=== PATIENT | male | born 1975 | race Caucasian/White ===

== ENCOUNTER 2016-08-12 09:55 | Emergency (ER) | payer OTHER ==
[2016-08-12 11:18] VITALS: BP 108/69
--- NOTE | 2016-08-12 12:04 | RAD ---
HISTORY: Swelling and pain, third DIP joint of the right hand COMPARISONS: None VIEWS: 3, Frontal, lateral, and oblique views of the third digit of the right hand FINDINGS: BONE DENSITY: Normal. BONES: There is no displaced fracture. JOINTS: There is no arthropathy. ALIGNMENT: There is no dislocation. SOFT TISSUES: Unremarkable. OTHER FINDINGS: None. IMPRESSION: NO ACUTE OSSEOUS INJURY. IF SYMPTOMS PERSIST, RECOMMEND REPEAT IMAGING.
--- NOTE | 2016-08-12 12:32 | UC ---
Hand/Wrist HPI - HPI Summary HPI Summary: SIX MONTHS AGO MAY HAVE DISLOCATED (AND SELF REDUCED) RIGHT MIDDLE AND RING FINGERS (DISTAL KNUCKLES OF BOTH) . SINCE THAT TIME HAS HAD PAIN WITH FLEXION OF BOTH FINGERS WELL SWELLING. ALSO HAS HAD CHRONIC RIGHT ELBOW TENDINITIS. - History Of Current Complaint Chief Complaint: UCUpperExtremity Stated Complaint: SWOLLEN FINGER Time Seen by Provider: 08/12/16 11:08 Hx Obtained From: Patient Onset/Duration: Gradual Onset, Lasting Weeks, Worse Since - LAST TWO WEEKS Severity Initially: Moderate Severity Currently: Mild Character Of Pain: Dull, Aching Aggravating Factor(s): Flexion, Extension Alleviating: Nothing Associated Signs And Symptoms: Positive: Swelling. Negative: Redness, Numbness/ Tingling Related History: Dominant Hand Right - Allergies/Home Medications Allergies/Adverse Reactions: Allergies Allergy/AdvReac Type Severity Reaction Status Date / Time No Known Allergies Allergy Verified 05/16/15 19:09 Home Medications: Home Medications NK [No Home Medications Reported] 08/12/16 [History Confirmed 08/12/16] PMH/Surg Hx/FS Hx/Imm Hx Previously Healthy: Yes Endocrine History Of: Denies: Diabetes, Thyroid Disease Cardiovascular History Of: Denies: Cardiac Disorders, Hypertension Respiratory History Of: Denies: COPD, Asthma GI/ History Of: Denies: Ulcer - Surgical History Surgical History: Yes Surgery Procedure, Year, and Place: pin L hand - Family History Known Family History: Positive: Diabetes - FATHER Negative: Respiratory Disease, Blood Disorder - Social History Occupation: Employed Full-time Lives: With Family Alcohol Use: None Substance Use Type: None Smoking Status (MU): Never Smoked Tobacco Review of Systems Constitutional: Negative Skin: Negative Eyes: Negative ENT: Negative Respiratory: Negative Cardiovascular: Negative Gastrointestinal: Negative Genitourinary: Negative Musculoskeletal: Arthralgia - RIGHT 3RD 4TH FINGER, Edema - RIGHT 4TH 3RD FINGER , Myalgia Neurological: Negative Psychological: Negative All Other Systems Reviewed And Are Negative: Yes Physical Exam Triage Information Reviewed: Yes Appearance: Well-Appearing, No Pain Distress, Well-Nourished Vital Signs: Initial Vital Signs Temp 97.6 F 08/12/16 11:12 Pulse 46 08/12/16 11:12 Resp 18 08/12/16 11:12 BP 108/69 08/12/16 11:12 Pulse Ox 98 08/12/16 11:12 Vital Signs Reviewed: Yes Eye Exam: Normal Eyes: Positive: Conjunctiva Clear ENT Exam: Normal ENT: Positive: Normal ENT inspection, Hearing grossly normal, TMs normal Dental Exam: Normal Neck exam: Normal Respiratory Exam: Normal Respiratory: Positive: Chest non-tender, Lungs clear, Normal breath sounds, No respiratory distress, No accessory muscle use Cardiovascular Exam: Normal Cardiovascular: Positive: RRR, No Murmur, Pulses Normal Abdominal Exam: Normal Abdomen Description: Positive: Nontender, No Organomegaly Musculoskeletal Exam: Normal Musculoskeletal: Positive: Strength Intact, ROM Intact Neurological Exam: Normal Psychological Exam: Normal Skin Exam: Normal Hand/Wrist Course/Dx - Differential Dx/Diagnosis Differential Diagnosis/HQI/PQRI: Sprain, Strain Provider Diagnoses: RIGHT THIRD AND FOURTH FINGER SPRAIN Discharge - Discharge Plan Condition: Stable Disposition: HOME Patient Education Materials: Finger Dislocation (ED), Finger Sprain (ED), Tendinitis (ED) Referrals: [facility] [place], [place] [facility] [Outside] Iván Schrader MD [Medical Doctor] - Bernadette Burrell MD [Medical Doctor] - Abiel Lehman MD [Primary Care Provider] -
== END 2016-08-12 12:31 | disposition home or self-care (01) ==
LOC: UCEAST 09:55
DX: S63.612A Unspecified sprain of right middle finger, initial encounter (principal); X58.XXXA Exposure to other specified factors, initial encounter
CPT/HCPCS: 73140; 99213; G0463

== ENCOUNTER 2018-10-19 14:26 | Emergency (ER) | payer OTHER ==
--- OUTSIDE RECORDS SUMMARY | 2018-10-19 15:55 | XMS REPORT | Continuity of Care Document ---
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 Ta Ordoñez MD Primary Care Physician Unavailable Payers Date Identification Numbers Payment Provider Subscriber Policy Number: [id number] Swetha Jocelyn Gallardo PayID: [id number] [address] [place] [address] Expires: 2018 Policy Number: [id number] [facility] Juliocesar Gallardo Group Number: [id number] [address] PayID: [id number] [place] [address] Advance Directives Description No Information Available Problems Description No Information Family History Description No Information Available Social History Type Date Description Comments Sex Unknown Allergies, Adverse Reactions, Alerts Description No Information Medications Description No Information Immunizations Description No Information Available Vital Signs Description No Information Available Results Description No Information Available Procedures Date Code Description Status 09/11/2018 35525 Echocardiogram Complete Completed 09/11/2018 21948 Stress Test Interpre And Report Only Completed 09/11/2018 02672 Stress Test Physician Super Only Completed 09/11/2018 18392 Myocardial Imaging Tomographic Multiple Study AT Rest Or Completed Stress Encounters Description No Information Available Plan of Treatment Future Appointment(s):10/13/2018 9:00 am - Regla Kramer PA at Cardiology Office
[2018-10-19 16:00] VITALS: BP 107/67
--- NOTE | 2018-10-19 17:09 | ED ---
Throat Pain/Nasal Congestion - HPI Summary HPI Summary: 43-year-old male presents with ear pain for the past couple days. He states that he was started with sinus congestion and postnasal drip. States that he developed worsening left ear pain. He admits to some decreased hearing bilaterally. No history of ear infection. Has no medical conditions but is being worked up for bradycardia. Denies any chest pressures or shortness of breath. He admits occasional cough. - History of Current Complaint Chief Complaint: UCEar Time Seen by Provider: 10/19/18 16:53 - Allergies/Home Medications Allergies/Adverse Reactions: Allergies Allergy/AdvReac Type Severity Reaction Status Date / Time No Known Allergies Allergy Verified 10/19/18 15:57 Home Medications: Home Medications Aspirin 650 mg PO Q6HR PRN 10/19/18 [History Confirmed 10/19/18] PMH/Surg Hx/FS Hx/Imm Hx Endocrine/Hematology History: Denies: Hx Diabetes, Hx Thyroid Disease Cardiovascular History: Denies: Hx Hypertension Respiratory History: Denies: Hx Asthma, Hx Chronic Obstructive Pulmonary Disease (COPD) GI History: Denies: Hx Ulcer - Surgical History Surgery Procedure, Year, and Place: left hand Infectious Disease History: No Infectious Disease History: Denies: Hx Hepatitis, Hx Human Immunodeficiency Virus (HIV), Traveled Outside the [place] in Last 30 Days - Family History Known Family History: Positive: Diabetes - FATHER Negative: Respiratory Disease, Blood Disorder - Social History Alcohol Use: None Substance Use Type: Reports: None Smoking Status (MU): Never Smoked Tobacco Review of Systems Negative: Fever Positive: Sore Throat, Ear Ache, Nasal Discharge Negative: Chest Pain Positive: Cough. Negative: Shortness Of Breath All Other Systems Reviewed And Are Negative: Yes Physical Exam Triage Information Reviewed: Yes Vital Signs On Initial Exam: Initial Vitals Temp Pulse Resp BP Pulse Ox 98.5 F 61 14 107/67 99 10/19/18 15:53 10/19/18 15:53 10/19/18 15:53 10/19/18 15:53 10/19/18 15:53 Vital Signs Reviewed: Yes Appearance: Positive: Well-Appearing Skin: Positive: Warm, Dry Head/Face: Positive: Normal Head/Face Inspection Eyes: Positive: Normal, EOMI, BLAZE, Conjunctiva Clear ENT: Positive: Pharynx normal, TM bulging - left, TM red - left Respiratory/Lung Sounds: Positive: Clear to Auscultation, Breath Sounds Present Cardiovascular: Positive: Normal, RRR Musculoskeletal: Positive: Normal Neurological: Positive: Normal Psychiatric: Positive: Normal Diagnostics - Vital Signs Vital Signs Temp Pulse Resp BP Pulse Ox 10/19/18 15:53 98.5 F 61 14 107/67 99 - Laboratory Lab Statement: Any lab studies that have been ordered have been reviewed, and results considered in the medical decision making process. EENT Course/Dx - Course Course Of Treatment: 43-year-old male presents with ear pain for the past couple days. He states that he was started with sinus congestion and postnasal drip. States that he developed worsening left ear pain. He admits to some decreased hearing bilaterally. No history of ear infection. Has no medical conditions but is being worked up for bradycardia. Denies any chest pressures or shortness of breath. He admits occasional cough. On exam left TM edematous and erythematous. postnasal drip seen. Lungs clear auscultation. Will treat with amoxicillin. Patient understands agrees with plan. - Differential Diagnoses Differential Diagnoses: Otitis Externa, Otitis Media, URI/Bronchitis - Diagnoses Provider Diagnoses: Otitis media Discharge - Sign-Out/Discharge Documenting (check all that apply): Patient Departure All imaging exams completed and their final reports reviewed: No Studies - Discharge Plan Condition: Good Disposition: HOME Prescriptions: Amoxicillin PO (*) [Amoxicillin 875 MG (*)] 875 mg PO BID #20 tab Patient Education Materials: Ear Infection (ED) Referrals: Abiel Lehman MD [Primary Care Provider] - Additional Instructions: Take antibiotic twice a day for 10 days use saline rinses in nose Take Tylenol or ibuprofen for pain every 6 hours Follow up with primary within 5 days Return to ED if develop any new or worsening symptoms - Billing Disposition and Condition Condition: GOOD Disposition: Home - Attestation Statements Provider Attestation: I did not see or disposition this patient. I was available for consult.
== END 2018-10-19 17:25 | disposition home or self-care (01) ==
LOC: UCEAST 14:26
DX: H66.92 Otitis media, unspecified, left ear (principal); R05 Cough; J02.9 Acute pharyngitis, unspecified
CPT/HCPCS: 99212; G0463

== ENCOUNTER 2018-11-06 10:49 | Emergency (ER) | payer OTHER ==
--- OUTSIDE RECORDS SUMMARY | 2018-11-06 11:39 | XMS REPORT | Continuity of Care Document ---
:1975 External Reference #:[id number] Author Name RICHARD Hsu Address [address] [facility] [place] [address] Care Team Providers Name Role Phone Juve Givens MD Care Team Information Wholesale Representative Unavailable Juve Givens MD Primary Care Physician Unavailable Payers Date Identification Numbers Payment Provider Subscriber Effective: 2011 Policy Number: [id number] [facility] Jocelynjudith Gallardo Group Name: [facility] [employer] [address] PayID: [id number] [place] [address] Advance Directives Description No Information Available Problems Active Problems Provider Date Hyperlipidemia Abiel Lehman M.D. Onset: 11/26/2011 Chest pain Abiel Lehman M.D. 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 Tablets as needed for dizziness. Cefdinir Take 1 pill 20caps H81.13 Collin Dahl, 10/24/2018 300mg Capsules twice a day for M.D. 10 days. Triamcinolone use nightly on 15gm Juve Ruff 09/19/2018 Acetonide finger tips Eve Givens 0.1% Ointment Pantoprazole Sodium 1 by mouth every Unknown 20mg day Tablets DR History Medications No Active Unknown 09/19/2018 - Medications 09/19/2018 No Active Unknown 01/24/2018 - Medications 01/24/2018 Meclizine HCL take 1 three times 30tabs Juve Ruff 01/24/2018 - a day as needed Eve Givens 09/19/2018 12.5mg Tablets dizziness and nausea Amoxicillin/Clavula 1 by mouth twice a 20tabs J01.90 Juve Ruff 05/04/2017 - loy Potassium day for 1 0days Eve Givens 01/24/2018 875-125mg Tablets Prednisone 1 by mouth every 5tabs M25.521 Zoraida 08/13/2015 - 50mg day AVNI Reyes 05/03/2017 Tablets Amoxicillin/Clavula 1 by mouth twice a 20tabs 461.9 Chidi Crump M.D. 2014 - loy Potassium day for 1 0days 08/13/2015 875-125mg Tablets Cephalexin 1 by mouth twice a 20tabs 685.0 Chidi Crump M.D. 08/23/2014 - 500mg day for 10 days 10/28/2014 Tablets Physical Therapy treatment and 845.00 Krystle Sheets, 11/28/2012 - evaluation of left Afnp-C 12/12/2012 ankle sprain No Active Unknown 10/11/2011 - Medications 11/28/2012 Physical Therapy treatment and 719.42 Collin Dahl, 09/09/2008 - evaluation right M.D. 09/21/2008 elbow pain Tennis Elbow Strap wear except to 1units 719.42 Collin Dahl, 2008 - sleep M.D. 11/12/2009 Avelox 1 PO qd 10tabs Collin Dahl, 08/26/2005 - 400mg M.D. 09/05/2005 Tablets Augmentin 1 PO bid With Food 20tabs 461.0 Collin Dahl, 07/28/2005 - 875mg M.D. 08/07/2005 Tablets Allerx Dose Pack 1 po bid 20tabs 461.0 Collin Dahl, 07/28/2005 - Eve 08/07/2005 8mg;2.5mg;120MG;2.5 M Tablets Amoxicillin 1 Tablet 3 Times 30tabs Kellie Irvinrer, 10/31/2002 - 500mg Daily WELT MAKER 12/20/2002 Tablets Proctocream-HC Apply Externally 1Oz Kellie Arias, 02/20/2002 - 3-4 X Daily WELT MAKER 12/20/2002 Motrin Ib as directed prn Unknown - 200mg 01/24/2018 Tablets Immunizations CPT Code Status Date Vaccine Lot # [id number] Given 01/24/2018 Tetanus And Diptheria Adult Preservative Free [id number] Given 08/14/2007 Tdap Tetanus, W Pertussis [id number] Vital Signs Date Vital Result Comment 10/24/2018 9:06am BP Systolic 124 mmHg BP Diastolic 80 mmHg Heart Rate 60 /min Body Temperature 97.7 F Respiratory Rate 16 /min Height 67.25 inches 5'7.25" Weight 163.00 lb BMI (Body Mass Index) 25.3 kg/m2 09/19/2018 10:39am BP Systolic 102 mmHg BP Diastolic 68 mmHg Heart Rate 57 /min Body Temperature 97.7 F Respiratory Rate 16 /min Height 67.25 inches 5'7.25" Weight 163.00 lb BMI (Body Mass Index) 25.3 kg/m2 01/24/2018 8:06am BP Systolic 102 mmHg BP Diastolic 64 mmHg Heart Rate 60 /min Body Temperature 97.7 F Height 67.25 inches 5'7.25" Weight 161.00 lb BMI (Body Mass Index) 25.0 kg/m2 Right Visual Acuity Distance 20/20 Left Visual Acuity Distance 20/20 05/04/2017 1:02pm BP Systolic 94 mmHg BP Diastolic 58 mmHg Heart Rate 70 /min Body Temperature 97.0 F Height 67.25 inches 5'7.25" Weight 161.38 lb BMI (Body Mass Index) 25.1 kg/m2 08/13/2015 2:48pm BP Systolic 110 mmHg BP Diastolic 64 mmHg Heart Rate 52 /min Body Temperature 98.6 F Respiratory Rate 16 /min Height 67.25 inches 5'7.25" Weight 154.00 lb BMI (Body Mass Index) 23.9 kg/m2 10/29/2014 3:04pm BP Systolic 112 mmHg BP Diastolic 76 mmHg Heart Rate 76 /min Body Temperature 97.1 F Height 67.25 inches 5'7.25" Weight 160.12 lb BMI (Body Mass Index) 24.9 kg/m2 08/23/2014 11:06am BP Systolic 122 mmHg BP Diastolic 82 mmHg Heart Rate 60 /min Body Temperature 96.9 F Height 67.25 inches 5'7.25" Weight 164.00 lb BMI (Body Mass Index) 25.5 kg/m2 11/28/2012 1:31pm BP Systolic 114 mmHg BP Diastolic 76 mmHg Heart Rate 48 /min Body Temperature 98.0 F Height 67.25 inches 5'7.25" Weight 154.25 lb BMI (Body Mass Index) 24.0 kg/m2 11/26/2011 8:33am BP Systolic 90 mmHg BP Diastolic 68 mmHg Heart Rate 54 /min Body Temperature 96.1 F Height 67.25 inches 5'7.25" Weight 156.00 lb BMI (Body Mass Index) 24.2 kg/m2 Right Visual Acuity Distance 20/15 Left Visual Acuity Distance 20/15 10/11/2011 3:12pm BP Systolic 106 mmHg BP Diastolic 64 mmHg Heart Rate 72 /min Body Temperature 98.8 F Height 67.25 inches 5'7.25" Weight 151.00 lb BMI (Body Mass Index) 23.5 kg/m2 11/12/2009 4:31pm BP Systolic 120 mmHg BP Diastolic 60 mmHg Heart Rate 64 /min Body Temperature 97.5 F Respiratory Rate 12 /min Height 67.25 inches 5'7.25" Weight 157.00 lb BMI (Body Mass Index) 24.4 kg/m2 09/09/2008 9:30am BP Systolic 110 mmHg BP Diastolic 70 mmHg Heart Rate 56 /min Body Temperature 98.1 F Respiratory Rate 16 /min Weight 160.00 lb 08/19/2008 4:04pm BP Systolic 118 mmHg BP Diastolic 78 mmHg Heart Rate 52 /min Body Temperature 97.4 F Respiratory Rate 16 /min Height 67.25 inches 5'7.25" Weight 157.00 lb BMI (Body Mass Index) 24.4 kg/m2 08/14/2007 8:24am BP Systolic 94 mmHg BP Diastolic 60 mmHg Heart Rate 60 /min Body Temperature 98.2 F Height 66.75 inches 5'6.75" Weight 158.00 lb BMI (Body Mass Index) 24.9 kg/m2 09/28/2006 2:12pm BP Systolic 88 mmHg BP Diastolic 40 mmHg Heart Rate 48 /min Body Temperature 98.1 F Height 66.75 inches 5'6.75" Weight 154.00 lb PT. Report BMI (Body Mass Index) 24.3 kg/m2 07/28/2005 3:11pm BP Systolic 100 mmHg BP Diastolic 60 mmHg Heart Rate 60 /min Body Temperature 97.8 F Height 66.75 inches 5'6.75" Weight 151.00 lb BMI (Body Mass Index) 23.8 kg/m2 06/30/2005 1:55pm BP Systolic 104 mmHg BP Diastolic 60 mmHg Heart Rate 60 /min Height 66.75 inches 5'6.75" Weight 153.00 lb BMI (Body Mass Index) 24.1 kg/m2 08/07/2003 11:54am BP Systolic 100 mmHg BP Diastolic 60 mmHg Heart Rate 60 /min Body Temperature 97.8 F R Ear Height 66.75 inches 5'6.75" 12/20/2002 1:10pm BP Systolic 112 mmHg BP Diastolic 64 mmHg Heart Rate 64 /min Body Temperature 98.5 F Height 66.75 inches 5'6.75" Weight 142.00 lb BMI (Body Mass Index) 22.4 kg/m2 10/31/2002 4:00pm BP Systolic 110 mmHg BP Diastolic 70 mmHg Heart Rate 58 /min Body Temperature 97.4 F Height 68 inches 5'8" Weight 148.00 lb BMI (Body Mass Index) 22.5 kg/m2 02/20/2002 3:25pm BP Systolic 98 mmHg BP Diastolic 64 mmHg Heart Rate 60 /min Body Temperature 97.1 F Height 68 inches 5'8" Weight 144.00 lb BMI (Body Mass Index) 21.9 kg/m2 Results Test Date Facility Test Result H/L Range Note Comprehensive Metabolic 01/13/2018 [facility]) Sodium 136 mEq/L 134-149 Prof Potassium 4.7 mEq/L 3.6-5.5 Chloride 96 mEq/L 94-112 Carbon Dioxide 27 mEq/L 21-32 Glucose 110 mg/dL High 70-105 1 BUN 18 mg/dL 6-26 Creatinine 0.9 mg/dL 0.6-1.4 BUN/Creat Ratio 20.0 CALC 8.0-36.0 Calcium 9.7 mg/dL 8.6-10.2 Total Protein 7.0 g/dL 6.4-8.3 Albumin 4.9 g/dL 3.8-5.5 Globulin 2.1 g/dL 2.0-4.8 A/G Ratio 2.3 CALC 0.6-2.3 Alk. Phosphatase 73 U/L 22-95 Alt (SGPT) 28 U/L 7-35 Ast (Sgot) 30 U/L 5-34 Total Bilirubin 0.5 mg/dL 0.2-1.3 GFR Non- >60 ml/min/1.73m^ >=60 GFR >60 ml/min/1.73m^ >=60 Lipid Profile 01/13/2018 [facility]) Cholesterol 254 mg/dL High 120-200 Triglycerides 60 mg/dL 30-200 HDL Cholesterol 65 mg/dL 30-70 LDL (Calculated) 177 CALC High 0-129 VLDL Cholesterol 12 mg/dL 0-50 HDL Risk Factor 3.9 CALC 0.0-4.4 CBC Electronic Fma 01/13/2018 [facility]) WBC 5.4 x10^3/UL 4.0- 10.0 RBC 5.44 x10^6/UL 3.93-6.00 HGB 15.3 g/dL 12.0-17.0 HCT 44 % 35-50 MCV 81.6 fL 80.0-95.0 MCH 28.1 pg 25.6-32.2 MCHC 34.5 g/dL 32.2-36.0 RDW-CV 11.7 % 11.6-14.4 PLT 273 x10^3/UL 163-400 MPV 9.5 fL 9.4-12.4 Meghna# 3.28 x10^3/UL 1.56-6.13 Lymph# 1.47 x10^3/UL 1.18-3.74 Swift# 0.48 x10^3/UL 0.24-0.82 Eos # 0.1 x10^3/UL 0.0-0.5 Baso # 0.03 x10^3/UL 0.01-0.08 Meghna% 60.8 % 34.0-70.0 Lymph % 27.3 % 20.0-52.0 Swift% 8.9 % 5.0-12.0 Eos% 1.7 % 0.7-7.0 Baso% 0.6 % 0.1-1.2 Comprehensive Metabolic 11/26/2011 [facility]) Albumin 5.0 g/dL 3.8-5.5 Prof Alk. Phos. 69 U/L 22-95 Alt (SGPT) 29 U/L 10-40 Ast (Sgot) 37 U/L High 5-34 2 BUN 23 mg/dL 6-26 Calcium 10.0 mg/dL 8.6-10.2 Chloride 101 mEq/L 94-112 Creatinine 1.0 mg/dL 0.6-1.4 Carbon Dioxide 24 mEq/L 21-32 Glucose 100 mg/dL 70-105 Sodium 140 mEq/L 134-149 Total Bilirubin 0.8 mg/dL 0.2-1.3 Total Protein 7.6 g/dL 6.3-8.1 Potassium 4.3 mEq/L 3.6-5.5 Globulin 2.6 g/dL 2.0-4.8 A/G Ratio 1.9 Calc 0.6-2.2 BUN/Creat Ratio 23.5 Calc 8.0-36.0 Lipid Profile 11/26/2011 [facility] Alice([facility]) Cholesterol 221 mg/dL High 120-200 HDL 62 mg/dL 30-70 Triglycerides 63 mg/dL 30-200 HDL Risk Factor 3.5 CALC 0.0-4.0 LDL (Calculated) 146 CALC High 0-129 VLDL (Calculated) 13 mg/dL 0-50 CBC Electronic ([facility]) 11/26/2011 [facility] Medicine WBC 4.9 3.6-9.6 (607)- - RBC 5.27 3.90-5.70 Hemoglobin (Fma/CMC/CTX) 14.7 g/dL 12.1 - 17.2 Hematocrit (Fma/CMC/CTX) 45.8 % 36.1 - 50.3 Platelets 299 10^3/ul 150-400 Lymph% 28.9 20.5-51.1 Mixed% 6.0 Neutrophils % 65.1 Mean Corpuscular Vol 87 82.2-97.4 Mean Corpuscular Hemoglobin 27.9 27.6-33.3 Mean Corpuscular Hemo Concen 32.1 32.0-36.0 RDW 13.9 High 11.6-13.7 Mean Platelet Volume 7.7 6.5-11.0 Ua - Non Micro (Fma) 11/26/2011 [facility] Appearance clear (607)- - Color yellow Glucose, Urine (Fma/CMC/CTX) neg Bilirubin neg Ketones neg SP Grav 1.025 Blood neg PH 6.5 Protein neg Urobil 0.2 Nitrite neg Leukocytes (a/[facility]) neg Lipid Profile 08/30/2008 Talha Jenkins([facility]) Cholesterol 228 mg/dL High 120-200 3, 4 HDL 43 mg/dL 30-70 Triglycerides 117 mg/dL 30-200 HDL Risk Factor 5.3 CALC 4.2-7.0 LDL (Calculated) 162 CALC High 0-129 VLDL (Calculated) 23 mg/dL 0-50 Comprehensive Metabolic 08/30/2008 Talha Jenkins([facility]) Albumin 4.4 g/dL 3.8-5.5 Prof Alk. Phos. 68 U/L 22-95 Alt (SGPT) 29 U/L 10-40 Ast (Sgot) 40 U/L High 5-34 5 BUN 19 mg/dL 6-26 Calcium 9.9 mg/dL 8.6-10.2 Chloride 102 mEq/L 94-112 Creatinine 1.0 mg/dL 0.6-1.4 Carbon Dioxide 26 mEq/L 21-32 Glucose 101 mg/dL 70-105 Sodium 140 mEq/L 134-149 Total Bilirubin 0.6 mg/dL 0.2-1.3 Total Protein 7.0 g/dL 6.3-8.1 Potassium 4.3 mEq/L 3.6-5.5 Globulin 2.7 g/dL 2.0-4.8 A/G Ratio 1.6 Calc 0.6-2.2 BUN/Creat Ratio 18.6 Calc 8.0-36.0 Complete Blood Count 08/30/2008 Talha Jenkins([facility]) WBC 4.6 x10^3/uL 3.6 -9.6 Gran# 3.2 x10^3/uL 1.5-7.2 Gran% 70.0 % 42.2-75.2 HCT 43 % 36-50 HGB 14.4 g/dL 12.1-17.2 Lymph# 1.1 x10^3/uL 0.7-4.9 Lymph% 24.3 % 20.5-51.1 MCH 27.2 pg Low 27.6-33.3 MCV 81.9 fL Low 82.2-97.4 MCHC 33.1 g/dL 33.0-35.5 Mo# 0.3 x10^3/uL 0.1-0.9 Mo% 5.7 % 1.7-9.3 MPV 8.2 fL 7.4-10.4 PLT 253 x10^3/uL 150-400 RBC 5.30 x10^6/uL 3.90-5.70 RDW 12.3 % 11.6-13.7 Laboratory test 08/30/2008 [facility](a) TSH 1.28 mIU/L 0.50-6.00 finding Laboratory test 08/30/2008 [facility] Medicine Sed Rate 5 MM finding (607)- - (Fma/CMC/Letty trex) Helicobactor Pylori NEGATIVE Laboratory 08/30/2008 [facility] Lyme 0.21 Negative 6, 7 test finding [address] Disease,Igg/[place] [address] [phone] Ua - Non Micro 08/19/2008 [facility] Medicine Appearance clear (a) (607)- - Color yellow Glucose, Urine (Fma/CMC/CTX) neg Bilirubin neg Ketones neg SP Grav 1.025 Blood neg PH 6.5 Protein neg Urobil 0.2 Nitrite neg Leukocytes (Fma/CMC/[facility]) neg Comprehensive Metabolic 08/14/2007 [facility]) Albumin 4.5 g/dL 3.8-5.5 8 Prof Alk. Phos. 61 U/L 22-95 Alt (SGPT) 20 U/L 10-40 Ast (Sgot) 24 U/L 5-34 BUN 23 mg/dL 6-26 Calcium 10.2 mg/dL 8.6-10.2 Chloride 100 mEq/L 94-112 Creatinine 1.2 mg/dL 0.6-1.4 Carbon Dioxide 32 mEq/L 21-32 Glucose 105 mg/dL 70-105 Sodium 140 mEq/L 134-149 Total Bilirubin 0.4 mg/dL 0.2-1.3 Total Protein 7.5 g/dL 6.3-8.1 Potassium 4.4 mEq/L 3.6-5.5 Globulin 3.0 g/dL 2.0-4.8 A/G Ratio 1.5 Calc 0.6-2.2 BUN/Creat Ratio 18.6 Calc 8.0-36.0 Lipid Profile 08/14/2007 [facility]) Cholesterol 221 mg/dL High 120-200 HDL 54 mg/dL 30-70 Triglycerides 108 mg/dL 30-200 HDL Risk Factor 4.1 CALC Low 4.2-7.0 LDL (Calculated) 145 CALC High 0-129 VLDL (Calculated) 22 mg/dL 0-50 Ua - Non Micro (a) 08/14/2007 [facility] Medicine Appearance CLEAR (607)- - Color LIGHT YELLOW Glucose, Urine (Fma/CMC/CTX) NEGATIVE Bilirubin NEGATIVE Ketones NEGATIVE SP Grav 1.015 Blood NEGATIVE PH 7.0 Protein NEGATIVE Urobil 0.2 Nitrite NEGATIVE Leukocytes (a/CMC/[facility]) NEGATIVE Laboratory test 06/30/2005 [facility] Sed Rate 3MM finding (607)- - (Fma/CMC/[facility]) CBC Electronic 06/30/2005 [facility] WBC 6.6 3.6-9.6 ([facility]) (607)- - Lymphocytes 19.4 % Low 20.5 - 51.1 Monocytes 3.5 % 1.7-9.3 Granulocytes 77.1 % High 42.2 - 75.2 Lymphocytes 1.3 10^3/uL 0.7 - 4.9 Monocytes 0.2 10^3/uL 0.1 - 0.9 Granulocytes 5.1 10^3/uL 1.5 - 7.2 RBC 5.33 3.90-5.70 Hemoglobin (Fma/CMC/CTX) 15.3 g/dL 12.1 - 17.2 Hematocrit (Fma/CMC/CTX) 44.5 % 36.1 - 50.3 Mean Corpuscular Vol 83.5 82.2-97.4 Mean Corpuscular Hemaglobin 28.7 27.6-33.3 Mean Corpuscular Hemo Concen 34.4 33.0-36.0 RDW 11.8 11.6-13.7 Platelets 257. 10^3/ul 150-400 Mean Platelet Volume 8.2 7.4-10.4 Comp Metabolic 06/30/2005 [facility] Glucose, Serum 93 mg/dL 70- 105 (Fma) Male (607)- - (Fma/CMC/CTX) BUN (Fma/CMC/[facility]) 17 mg/dL 6-26 Creatinine (Fma/CMC/CTX) 1.0 mg/dL 0.6-1.4 BUN/Creatinin Ratio 17.5 8.0-36 Sodium 143 134-149 Potassium 4.0 3.6-5.5 Chloride 105 mEq/L 94-112 Co2 28 21-32 Calcium (Fma/CMC/[facility]) 9.8 mg/dL 8.6-10.2 Total Protein 7.7 g/dL 6.3-8.1 Albumin (Fma/CMC/[facility]) 5.0 3.8-5.5 Globulin 2.7 2.0-4.8 A/G Ratio (Fma/CMC) 1.8 0.6-2.2 Alk Phos (a) Male 62 U/L 22-95 Alt-M SGPT Male (Fma) 39 10-40 Ast Sgot 32 U/L 5-34 Bilirubin, Total 0.8 mg/dL 0.2-1.3 Laboratory test 06/30/2005 [facility] TSH (a/CMC/[facility]) 1.60 uIU/ ml 0.5-6.0 finding (607)- - Laboratory test 06/30/2005 [facility] C-Reactive Protein <0.1 mg/dL 0.0- 0.5 9 finding [address] [place], [place] [id number] [phone] Tiffany Panel 06/30/2005 [facility] Antinuclear AB (Tiffany) NEGATIVE Negative 10 Complete [place] [address] [place] [address] [phone] Rheumatoid Factor (RF) <11.0 IU/mL 0.0-20.0 Anti Dna (DS) 4.37 IU/mL <30 11 Antiextractable 06/30/2005 [facility] PRIMARY CARE NURSE PRACTITIONER Antibodies 2 U/ml Negative 12 Nuclear Ag 28 [facility]/PRIMARY CARE NURSE PRACTITIONER) [place] [address] [phone] [place] Antibodies 3 U/ml Negative 13 Anti Dna (SS) 06/30/2005 [facility] Anti-Dna(SS)IgG, Ab, Negative 0-19 14 Igg, AB [address] [facility] [place] [address] [phone] Hla-B27 06/30/2005 [facility] Hla-B27 Negative 15 Profile [address] [place] [address] [phone] RESULTS VERIFIED BY REPEAT ANALYSIS 2 CONSISTENT WITH PREVIOUS RESULTS 3 FASTING 4 RESULT KATHLEEN'D 5 RESULT KATHLEEN'D 6 FASTING; 7 < or=0.80 Negative 0.81 - 1.20 Equivocal >1.20 Positive 8 FASTING 9 2 SST TUBES; 1 YELLOW TOP TUBE 10 (Performed by Enzyme Immunoassay, EIA) 11 < 30 Negative 30-75 Equivocal > 75 Positive . 12 < 10 Negative > or=10 Positive 13 < 10 Negative > or=10 Positive 14 Negative: <20 Borderline: 20 - 25 Positive: >25 15 This test was performed using PCR (Polymerase Chain Reaction)/SSOP (Sequence Specific Oligonucleotide Probes) technique. SBT (Sequence Based Typing) and/or SSP (Sequence Specific Primers) may be used as supplemental methods when necessary. Please contact [facility] Customer Service at if you have any questions. . Director of [facility] Dr Tyshawn Trimble, PhD Procedures Date Code Description Status 11/26/2011 51267 Vision Test- screening test of visual acuity, Completed quantitative, bila 10/11/2011 38873 Electrocardiogram Complete Completed 12/20/2002 09019 Electrocardiogram Complete Completed Encounters Type Date Location Provider Dx Diagnosis Office Visit 10/24/2018 [facility] Office Aimee Nick, H81.13 Benign paroxysmal 9:00a PA vertigo, bilateral H66.92 Otitis media, unspecified, left ear R11.2 Nausea with vomiting, unspecified Office Visit 09/19/2018 10:00a [facility] Office Juve Ruff R07.89 Other chest Eve Givens pain R10.84 Generalized abdominal pain Office Visit 05/04/2017 1:10p Main Office Juve Ruff J01.90 Acute sinusitisChon M.D. unspecified Office Visit 08/13/2015 2:45p [facility] Zoraida M25.521 Pain in right Office EricAVNI rain elbow Office Visit 10/29/2014 3:00p [facility] Chidi Crump M.D. 461.9 Sinusitis Acute Office Unspec Office Visit 08/23/2014 10:50a [facility] Chidi Crump M.D. 685.0 Pilonidal Cyst W/ Office Abscess Office Visit 11/28/2012 1:30p Main Office Krystle Sheets, 845.00 Sprains & Strains Afnp-C Ankle Unspec Site Office Visit 11/26/2011 8:30a [facility] Abiel Villegas V70.0 Examination Office Eve Lehman General Medical Routine AT Health Care Facility 786.50 Pain Chest Unspec V77.91 Screening For Lipoid Disorders 272.4 Hyperlipidemia Other Unspec Office Visit 10/11/2011 3:00p [facility] Office Abiel Villegas 786.50 Pain Chest Unspec Eve Lehman Office Visit 11/12/2009 4:30p [facility] Collin Villegas 709.9 Skin & Eve Dahl Subcutaneous Tissue Disorders Unspec Office Visit 09/09/2008 9:30a [facility] Office Collin Villegas 719.42 Pain Joint Upper Eve Dahl Arm 272.4 Hyperlipidemia Other Unspec Office Visit 08/19/2008 4:00p [facility] Office Collin Villegas V70.0 Examination Eve Dahl General Medical Routine AT Health Care Facility 272.4 Hyperlipidemia Other Unspec 780.79 Malaise And Fatigue Other 719.42 Pain Joint Upper Arm 536.8 Stomach Dyspepsia & Other Spec Disorders Of Function Office Visit 08/14/2007 8:20a [facility] Office Collin Villegas V70.0 Hans Dahl M.D. General Medical Routine AT Health Care Facility V17.3 History Family Ischemic Heart Disease 726.65 Bursitis Prepatellar 386.11 Vertigo Benign Paroxysmal Position V06.5 Tetanus Diphtheria (DT) Office Visit 09/28/2006 2:15p [facility] Krystle Sheets 780.4 Dizziness & Afnp-C Giddiness Office Visit 07/28/2005 3:10p [facility] Collin Villegas 461.0 Sinusitis Acute Eve Dahl Maxillary Office Visit 06/30/2005 1:40p [facility] Collin Villegas 780.4 Dizziness & Eve Dahl Giddiness 784.9 Head & Neck Symptoms Other Office Visit 08/07/2003 11:30a Main Office Tracie 465.9 [facility] Af[facility]-C Respiratory Infections Acute Unspec Sites Office Visit 12/20/2002 1:20p Main Office Collin Dahl, V72.83 Examination MJulissa. Preoperative Other Spec 386.11 Vertigo Benign Paroxysmal Position 520.6 Teeth Eruption Disturbances Office Visit 10/31/2002 4:00p [facility] Office Kellie Arias, 461.9 Sinusitis Acute WELT MAKER Unspec Office Visit 02/20/2002 3:30p Main Office AVNI Calabrese Plan of Treatment Future Appointment(s):10/31/2018 8:00 am - RICHARD Hsu at [facility] Pafyfn8610/24/2018 - Aimee Nick, PAH81.13 Benign paroxysmal vertigo, bilateralNew Medication:Meclizine HCL 25 mg - take 1 tablet 2-3 times a day as needed for dizziness.Cefdinir 300 mg - Take 1 pill twice a day for 10 days.Comments:Take meclizine to see if helps dizziness. Follow up with Chiropractor this afternoon for re adjustment which has helped patient in the past (C1 is out of place). Switch antibiotic due to lack of initial response to amoxicillin. Switch antibiotic to cefdinir for the next 10 days. Push lots of fluids todecrease risk of dehydration. If you are not improved in the next 2- 3 days please let us know. Emergency Room is always available for inretractable nausea and other debilitating symptoms that you don't feel are managed well at home. Follow up in 1 week. Recommend balance center PT.H66.92 Otitis media, unspecified, left earComments:Switch to cefdinir due to lack of initial response.R11.2 Nausea with vomiting, unspecifiedComments:Due to vertigo. Take meclizine.AllComments:PCMHMedication Management Patient Understands medications he's taking? Yes Are there Barriers to Adherence? No Has the patient been asked about herbal supplements and therapies, and OTC meds? Yes Care Plan1. Patient has been queried about patient's goals/preferences and functional/lifestyle goals at relevant visits. Yes If relevant, describe: N/ A2. Treatment goals as explained to the patient: above3. Are there barriers to meeting treatment goals? No If Yes, please describe:4. Self- Management goals as described to the patient: Yes As always, we strongly encourage a healthy diet and making physical activity a part of your every day life. If you have questions about how or where to start, please contact the office.
--- OUTSIDE RECORDS SUMMARY | 2018-11-06 11:39 | XMS REPORT | Continuity of Care Document ---
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 Onset: 10/11/2011 Hyperlipidemia Abiel Lehman M.D. 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 Tobacco Use Start: Unknown Nonsmoker ETOH Use Denies alcohol use Tobacco Use Start: Unknown Nonsmoker Smoking Status Reviewed: 10/31/18 Nonsmoker Exercise Type/Frequency Exercises sporadically Current Seat Belt/Car Seat Always uses a seat belt Smoke Alarms There are smoke alarms in the house Allergies, Adverse Reactions, Alerts Active Allergies Reaction Severity Comments Date Meclizine IN THE CLOUDS FEELING 10/31/2018 Inactive Allergies NKDA 10/11/2011 Medications Active Medications SIG Qnty Indications Ordering Provider Date Cefdinir Take 1 pill 20caps H81.13 Collin Dahl, 10/24/2018 300mg Capsules twice a day for M.D. 10 days. Triamcinolone use nightly on 15gm Juve Ruff 09/19/2018 Acetonide finger tips Eve Givens 0.1% Ointment Pantoprazole Sodium 1 by mouth every Unknown 20mg day Tablets DR History Medications Meclizine HCL take 1 tablet 2-3 30tabs H81.13 Collin Dahl, 10/24/2018 - 25mg times a day as M.D. 10/31/2018 Tablets needed for dizziness. No Active Unknown 09/19/2018 - Medications 09/19/2018 [...] bid 20tabs 461.0 Collin Dahl, 07/28/2005 - M.D. 08/07/2005 8mg;2.5mg;120MG;2.5 M Tablets Amoxicillin 1 Tablet 3 Times 30tabs Kellie Hugo, 10/31/2002 - 500mg Daily SHINGLE CUTTER 12/20/2002 Tablets Proctocream-HC Apply Externally 1Oz Kellie Hugo, 02/20/2002 - 3-4 X Daily SHINGLE CUTTER 12/20/2002 Motrin Ib as directed prn Unknown - 200mg 01/24/2018 Tablets Immunizations CPT Code Status Date Vaccine Lot # [id number] Given 01/24/2018 Tetanus And Diptheria Adult Preservative Free [id number] >7Yrs 71491 Given 08/14/2007 Tdap Tetanus, W Pertussis [id number] Vital Signs Date Vital Result Comment 10/31/2018 8:11am BP Systolic 94 mmHg BP Diastolic 68 mmHg Heart Rate 56 /min Body Temperature 97.5 F Height 67.25 inches 5'7.25" 10/24/2018 9:06am BP Systolic 124 mmHg BP [...] GFR >60 ml/min/1.73m^ >=60 Lipid Profile 01/13/2018 [place] [facility]) Cholesterol 254 mg/dL High 120-200 Triglycerides 60 mg/dL 30-200 HDL Cholesterol 65 mg/dL 30-70 LDL (Calculated) 177 CALC High 0-129 VLDL Cholesterol 12 mg/dL 0-50 HDL Risk Factor 3.9 CALC 0.0-4.4 CBC Electronic a 01/13/2018 [place] [facility]) WBC 5.4 x10^3/UL 4.0- 10.0 RBC 5.44 x10^6/UL 3.93-6.00 HGB 15.3 g/dL 12.0-17.0 HCT 44 % 35-50 MCV 81.6 fL 80.0-95.0 MCH 28.1 pg 25.6-32.2 MCHC 34.5 g/dL 32.2-36.0 RDW-CV 11.7 % 11.6-14.4 PLT 273 x10^3/UL 163-400 MPV 9.5 fL 9.4-12.4 Meghna# 3.28 x10^3/UL 1.56-6.13 Lymph# 1.47 x10^3/UL 1.18-3.74 [place]# 0.48 x10^3/UL 0.24-0.82 Eos # 0.1 x10^3/UL 0.0-0.5 Baso # 0.03 x10^3/UL 0.01-0.08 Meghna% 60.8 % 34.0-70.0 Lymph % 27.3 % 20.0-52.0 [place]% 8.9 % 5.0-12.0 Eos% 1.7 % 0.7-7.0 Baso% 0.6 % 0.1-1.2 Comprehensive Metabolic 11/26/2011 [place] [facility]) Albumin 5.0 g/dL 3.8-5.5 Prof Alk. Phos. [...] Ratio 23.5 Calc 8.0-36.0 Lipid Profile 11/26/2011 [place] [facility]) Cholesterol 221 mg/dL High 120-200 HDL 62 mg/dL 30-70 Triglycerides 63 mg/dL 30-200 HDL Risk Factor 3.5 CALC 0.0-4.0 LDL (Calculated) 146 CALC High 0-129 VLDL (Calculated) 13 mg/dL 0-50 CBC Electronic (a) 11/26/2011 [facility] Medicine WBC 4.9 3.6-9.6 (607)- - [...] Urobil 0.2 Nitrite neg Leukocytes (Fma/CMC/[facility]) neg Lipid Profile 08/30/2008 Talha Jenkins(a) Cholesterol 228 mg/dL High 120-200 3, 4 HDL 43 mg/dL 30-70 Triglycerides 117 mg/dL 30-200 HDL Risk Factor 5.3 CALC 4.2-7.0 LDL (Calculated) 162 CALC High 0-129 VLDL (Calculated) 23 mg/dL 0-50 Comprehensive Metabolic 08/30/2008 Talha Jenkins([facility]) Albumin 4.4 g/dL 3.8-5.5 Prof Alk. Phos. [...] 18.6 Calc 8.0-36.0 Complete Blood Count 08/30/2008 Palencia Alice(fma) WBC 4.6 x10^3/uL 3.6 -9.6 Gran# 3.2 [...] 1.28 mIU/L 0.50-6.00 finding Laboratory test 08/30/2008 [facility] Medicine Sed Rate 5 MM finding (607)- - (Fma/CMC/Letty trex) Helicobactor Pylori NEGATIVE Laboratory 08/30/2008 [facility] Lyme 0.21 Negative 6, 7 test finding [address] Disease,Igg/[place] [address] [phone] Ua - Non Micro 08/19/2008 [facility] Appearance clear (a) (607)- - Color yellow Glucose, Urine (Fma/CMC/CTX) neg Bilirubin neg Ketones neg SP Grav 1.025 Blood neg PH 6.5 Protein neg Urobil 0.2 Nitrite neg Leukocytes (Fma/CMC/[facility]) neg Comprehensive Metabolic 08/14/2007 Palencia Alice(a) Albumin 4.5 g/dL 3.8-5.5 8 Prof Alk. [...] 18.6 Calc 8.0-36.0 Lipid Profile 08/14/2007 [place] [facility]) Cholesterol 221 mg/dL High 120-200 HDL 54 mg/dL 30-70 Triglycerides 108 mg/dL 30-200 HDL Risk Factor 4.1 CALC Low 4.2-7.0 LDL (Calculated) 145 CALC High 0-129 VLDL (Calculated) 22 mg/dL 0-50 Ua - Non Micro (Fma) 08/14/2007 [facility] Medicine Appearance CLEAR (607)- - Color LIGHT YELLOW Glucose, Urine (Fma/CMC/CTX) NEGATIVE Bilirubin NEGATIVE Ketones NEGATIVE SP Grav 1.015 Blood NEGATIVE PH 7.0 Protein NEGATIVE Urobil 0.2 Nitrite NEGATIVE Leukocytes ([facility]) NEGATIVE Laboratory test 06/30/2005 [facility] Sed Rate 3MM finding (607)- - (Fma/CMC/[facility]) CBC Electronic 06/30/2005 [facility] WBC 6.6 3.6-9.6 ([facility]) (607)- - Lymphocytes 19.4 % Low 20.5 [...] Platelet Volume 8.2 7.4-10.4 Comp Metabolic 06/30/2005 [facility] Glucose, Serum 93 mg/dL 70- 105 (Fma) [...] Total 0.8 mg/dL 0.2-1.3 Laboratory test 06/30/2005 [facility] TSH (a/CMC/[facility]) 1.60 uIU/ ml 0.5-6.0 finding (607)- - Laboratory test 06/30/2005 [facility] C-Reactive Protein <0.1 mg/dL 0.0- 0.5 9 finding [address] [place] [address] [phone] Tiffany Panel 06/30/2005 [facility] Antinuclear AB (Tiffany) NEGATIVE Negative 10 Complete Lucien [address] [place] [address] [phone] Rheumatoid Factor (RF) <11.0 IU/mL 0.0-20.0 Anti Dna (DS) 4.37 IU/mL <30 11 Antiextractable 06/30/2005 [facility] COIL TIER Antibodies 2 U/ml Negative 12 Nuclear Ag 28 [facility] ([place]/COIL TIER) [place] [address] [phone] [place] Antibodies 3 U/ml Negative 13 Anti Dna (SS) 06/30/2005 [facility] Anti-Dna(SS)IgG, Ab, Negative 0-19 14 Igg, AB [address] [facility] [place] [address] [phone] Hla-B27 06/30/2005 [facility] Hla-B27 Negative 15 Profile [address] [place] [address] [phone] RESULTS VERIFIED BY REPEAT ANALYSIS 2 [...] PhD Procedures Date Code Description Status 11/26/2011 37596 Vision Test- screening test of visual acuity, Completed quantitative, bila 10/11/2011 49899 Electrocardiogram Complete Completed 12/20/2002 03859 Electrocardiogram Complete Completed Encounters Type Date Location Provider Dx Diagnosis Office Visit 10/24/2018 [facility] Office Aimee Nick, H81.13 Benign paroxysmal 9:00a PA vertigo, bilateral H66.92 Otitis media, unspecified, left ear R11.2 Nausea with vomiting, unspecified Office Visit 09/19/2018 10:00a [facility] Office Juve Ruff R07.89 Other chest Eve Givens pain R10.84 Generalized abdominal pain Office Visit 05/04/2017 1:10p Main Office Juve Ruff J01.90 Acute sinusitisChon M.D. unspecified Office Visit 08/13/2015 2:45p [facility] Zoraida M25.521 Pain in right Office Eric, SHINGLE CUTTER elbow Office Visit 10/29/2014 3:00p [facility] Chidi Crump M.D. 461.9 Sinusitis Acute Office Unspec Office Visit 08/23/2014 10:50a [facility] Chidi Crump M.D. 685.0 Pilonidal Cyst W/ Office Abscess Office Visit 11/28/2012 1:30p Main Office Krystle Sheets, 845.00 Sprains & Strains Afnp-C Ankle Unspec Site Office Visit 11/26/2011 8:30a [facility] Abiel Villegas V70.0 Examination Office Eve Lehman General Medical Routine AT [facility] 786.50 Pain Chest Unspec V77.91 Screening For Lipoid Disorders 272.4 Hyperlipidemia Other Unspec Office Visit 10/11/2011 3:00p [facility] Office Abiel Villegas 786.50 Pain Chest Unspec Eve Lehman Office Visit 11/12/2009 4:30p [facility] Office Collin Villegas 709.9 Skin & Eve Dahl Subcutaneous Tissue Disorders Unspec Office Visit 09/09/2008 9:30a [facility] Office Collin Villegas 719.42 Pain Joint Upper Eve Dahl Arm 272.4 Hyperlipidemia Other Unspec Office Visit 08/19/2008 4:00p [facility] Office Collin Villegas V70.0 Hans Dahl M.D. General Medical Routine AT [facility] Facility 272.4 Hyperlipidemia Other Unspec 780.79 Malaise And Fatigue Other 719.42 Pain Joint Upper Arm 536.8 Stomach Dyspepsia & Other Spec Disorders Of Function Office Visit 08/14/2007 8:20a [facility] Office Collin Villegas V70.0 Hans Dahl M.D. General Medical Routine AT [facility] Care Facility V17.3 History Family Ischemic Heart Disease 726.65 Bursitis Prepatellar 386.11 Vertigo Benign Paroxysmal Position V06.5 Tetanus Diphtheria (DT) Office Visit 09/28/2006 2:15p [facility] Office Krystle Sheets, 780.4 Dizziness & Afnp-C Giddiness Office Visit 07/28/2005 3:10p [facility] Collin Villegas 461.0 Sinusitis Acute Eve Dahl Maxillary Office Visit 06/30/2005 1:40p [facility] Collin Villegas 780.4 Dizziness & Eve Dahl Giddiness 784.9 Head & Neck Symptoms Other Office Visit 08/07/2003 11:30a Main Office Tracie 465.9 URI [place], Afnp-C Respiratory Infections Acute Unspec Sites Office Visit 12/20/2002 1:20p Main Office Collin Dahl, V72.83 Examination M.DLeslie Preoperative Other Spec 386.11 Vertigo Benign Paroxysmal Position 520.6 Teeth Eruption Disturbances Office Visit 10/31/2002 4:00p [facility] Kellie Arias, 461.9 Sinusitis Acute SHINGLE CUTTER Unspec Office Visit 02/20/2002 3:30p Main Office AVNI Calabrese Plan of Treatment 10/31/2018 - Aimee Nick, PAH81.13 Benign paroxysmal vertigo, bilateralComments:Increase fluids throughout the day. Proper nutrition. Chiropractor as needed.[facility] if interested let me know.H66.92 Otitis media, unspecified, left earComments:Continue antibiotic for 3 days. Add rocio or fexofendrine to see if helps decrease fluid in the inner ear. I will call you at the end of the week to see how you are feeling. Please reach out if symptoms do not improve or worsen.AllComments:PCMHMedication Management Patient Understands medications he's taking? Yes Are there Barriers to Adherence? No Has the patient been asked about herbal supplements and therapies, and OTC meds? Yes Care Plan1. Patient has been queried about patient's goals/preferences and functional/lifestyle goals at relevant visits. Yes If relevant, describe: N/A2. Treatment goals as explained to the patient: above3. Are there barriers to meeting treatment goals? No If Yes , please describe:4. Self-Management goals as described to the patient: Yes As always, we strongly encourage a healthy diet and making physical activity a part of your every day life. If you have questions about how or where to start, please contact the office.
--- OUTSIDE RECORDS SUMMARY | 2018-11-06 11:40 | XMS REPORT | Continuity of Care Document ---
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 Onset: 11/26/2011 Chest pain Abiel Lehman M.D. 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 12/20/2002 Motrin Ib as directed prn Unknown - 200mg 01/24/2018 Tablets Immunizations CPT Code Status Date Vaccine Lot # [id number] Given 01/24/2018 Tetanus And Diptheria Adult Preservative Free [id number] >7Yrs 88344 Given 08/14/2007 Tdap Tetanus, W Pertussis [id number] Vital Signs Date Vital Result Comment 10/24/2018 [...] >60 ml/min/1.73m^ >=60 Lipid Profile 01/13/2018 Talha Alice([facility]) Cholesterol 254 mg/dL High 120-200 Triglycerides 60 mg/dL 30-200 HDL Cholesterol 65 mg/dL 30-70 LDL (Calculated) 177 CALC High 0-129 VLDL Cholesterol 12 mg/dL 0-50 HDL Risk Factor 3.9 CALC 0.0-4.4 CBC Electronic Fma 01/13/2018 Talha Alice([facility]) WBC 5.4 x10^3/UL 4.0- 10.0 RBC 5.44 x10^6/UL 3.93-6.00 HGB 15.3 g/dL 12.0-17.0 HCT 44 % 35-50 MCV 81.6 fL 80.0-95.0 MCH 28.1 pg 25.6-32.2 MCHC 34.5 g/dL 32.2-36.0 RDW-CV 11.7 % 11.6-14.4 PLT 273 x10^3/UL 163-400 MPV 9.5 fL 9.4-12.4 Meghna# 3.28 x10^3/UL 1.56-6.13 Lymph# 1.47 x10^3/UL 1.18-3.74 [place]# 0.48 x10^3/UL 0.24-0.82 Eos # 0.1 x10^3/UL 0.0-0.5 Baso # 0.03 x10^3/UL 0.01-0.08 Meghna% 60.8 % 34.0-70.0 Lymph % 27.3 % 20.0-52.0 [place]% 8.9 % 5.0-12.0 Eos% 1.7 % 0.7-7.0 Baso% 0.6 % 0.1-1.2 Comprehensive Metabolic 11/26/2011 Talha Alice([facility]) Albumin 5.0 g/dL 3.8-5.5 Prof Alk. [...] 23.5 Calc 8.0-36.0 Lipid Profile 11/26/2011 Talha Alice([facility]) Cholesterol 221 mg/dL High 120-200 HDL 62 mg/dL 30-70 Triglycerides 63 mg/dL 30-200 HDL Risk Factor 3.5 CALC 0.0-4.0 LDL (Calculated) 146 CALC High 0-129 VLDL (Calculated) 13 mg/dL 0-50 CBC Electronic ([facility]) 11/26/2011 [facility] Medicine WBC 4.9 3.6-9.6 (607)- - [...] Protein neg Urobil 0.2 Nitrite neg Leukocytes (a/[facility]) neg Lipid Profile 08/30/2008 Talha Jenkins([facility]) Cholesterol 228 mg/dL High 120-200 3, 4 HDL 43 mg/dL 30-70 Triglycerides 117 mg/dL 30-200 HDL Risk Factor 5.3 CALC 4.2-7.0 LDL (Calculated) 162 CALC High 0-129 VLDL (Calculated) 23 mg/dL 0-50 Comprehensive Metabolic 08/30/2008 Talha Jenkins([facility]) Albumin 4.4 g/dL 3.8-5.5 Prof Alk. [...] Calc 8.0-36.0 Complete Blood Count 08/30/2008 Talha Jenkins([facility]) WBC 4.6 x10^3/uL 3.6 -9.6 Gran# 3.2 [...] 1.28 mIU/L 0.50-6.00 finding Laboratory test 08/30/2008 [facility] Medicine Sed Rate 5 MM finding (607)- - (Fma/CMC/Letty trex) Helicobactor Pylori NEGATIVE Laboratory 08/30/2008 [facility] Lyme 0.21 Negative 6, 7 test finding [address] Disease,Igg/[place] [address] [phone] Ua - Non Micro 08/19/2008 [facility] Medicine Appearance clear (a) (607)- - [...] 18.6 Calc 8.0-36.0 Lipid Profile 08/14/2007 Palencia Alice([facility]) Cholesterol 221 mg/dL High 120-200 HDL 54 mg/dL 30-70 Triglycerides 108 mg/dL 30-200 HDL Risk Factor 4.1 CALC Low 4.2-7.0 LDL (Calculated) 145 CALC High 0-129 VLDL (Calculated) 22 mg/dL 0-50 Ua - Non Micro (a) 08/14/2007 [facility] Medicine Appearance CLEAR (607)- - Color LIGHT YELLOW Glucose, Urine (Fma/CMC/CTX) NEGATIVE Bilirubin NEGATIVE Ketones NEGATIVE SP Grav 1.015 Blood NEGATIVE PH 7.0 Protein NEGATIVE Urobil 0.2 Nitrite NEGATIVE Leukocytes (a/CMC/[facility]) NEGATIVE Laboratory test 06/30/2005 [facility] Sed Rate 3MM finding (607)- - (Fma/CMC/[facility]) CBC Electronic 06/30/2005 [facility] WBC 6.6 3.6-9.6 ([facility]) (607)- - Lymphocytes 19.4 % Low [...] Platelet Volume 8.2 7.4-10.4 Comp Metabolic 06/30/2005 [facility] Glucose, Serum 93 mg/dL 70- 105 (Fma) [...] Total 0.8 mg/dL 0.2-1.3 Laboratory test 06/30/2005 [facility] TSH (a/CMC/[facility]) 1.60 uIU/ ml 0.5-6.0 finding (607)- - Laboratory test 06/30/2005 [facility] C-Reactive Protein <0.1 mg/dL 0.0- 0.5 9 finding [address] [place], [place] [address] [phone] Tiffany Panel 06/30/2005 [facility] Antinuclear AB (Tiffany) NEGATIVE Negative 10 Complete [place] [address] [place] [address] [phone] Rheumatoid Factor (RF) <11.0 IU/mL 0.0-20.0 Anti Dna (DS) 4.37 IU/mL <30 11 Antiextractable 06/30/2005 [facility] RETURNED [employer] Antibodies 2 U/ml Negative 12 Nuclear Ag 28 [facility] ([place]/RETURNED TELEPHONE EQUIPMENT APPR[place]) [place] [address] [phone] [place] Antibodies 3 U/ml Negative 13 Anti Dna (SS) 06/30/2005 [facility] Anti-Dna(SS)IgG, Ab, Negative 0-19 14 Igg, AB 28 [facility] [place] [address] [phone] Hla-B27 06/30/2005 [facility] Hla-B27 Negative 15 Profile [address] [place] [address] [phone] 1 RESULTS VERIFIED BY REPEAT ANALYSIS 2 [...] 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 Juve Ruff R07.89 Other chest pain 10:00a Eve Givens R10.84 Generalized abdominal pain Office Visit 05/04/2017 1:10p Main Office Juve Ruff J01.90 Acute sinusitisChon M.D. unspecified Office Visit 08/13/2015 2:45p [facility] Zoraida M25.521 Pain in right Office AVNI Reyes elbow Office Visit 10/29/2014 3:00p Sabrina Crump M.D. 461.9 Sinusitis Acute Office Unspec Office Visit 08/23/2014 10:50a Sabrina Crump M.D. 685.0 Pilonidal Cyst W/ Office Abscess Office Visit 11/28/2012 1:30p Main Office Krystle Sheets, 845.00 Sprains & Strains Afnp-C Ankle Unspec Site Office Visit 11/26/2011 8:30a [facility] Abiel Villegas V70.0 Examination Office Eve Lehman General Medical Routine AT [facility] 786.50 Pain Chest Unspec V77.91 Screening For Lipoid Disorders 272.4 Hyperlipidemia Other Unspec Office Visit 10/11/2011 3:00p [facility] Abiel Villegas 786.50 Pain Chest Unspec Eve Lehman Office Visit 11/12/2009 4:30p [facility] Collin Villegas 709.9 Skin & Eve Dahl Subcutaneous Tissue Disorders Unspec Office Visit 09/09/2008 9:30a [facility] Collin Villegas 719.42 Pain Joint Upper Eve Dahl Arm 272.4 Hyperlipidemia Other Unspec Office Visit 08/19/2008 4:00p [facility] Office Collin Villegas V70.0 Examination Eve Dahl General Medical Routine AT [facility] 272.4 Hyperlipidemia Other Unspec 780.79 Malaise And Fatigue Other 719.42 Pain Joint Upper Arm 536.8 Stomach Dyspepsia & Other Spec Disorders Of Function Office Visit 08/14/2007 8:20a [facility] Collin Villegas V70.0 Examination Eve Dhal General Medical Routine AT [facility] Care Facility V17.3 History Family Ischemic Heart Disease 726.65 Bursitis Prepatellar 386.11 Vertigo Benign Paroxysmal Position V06.5 Tetanus Diphtheria (DT) Office Visit 09/28/2006 2:15p [facility] Krystle Sheets, 780.4 Dizziness & Afnp-C [...] Office Visit 12/20/2002 1:20p Main Office Collin Dahl V72.83 Examination M.D. Preoperative Other Spec 386.11 Vertigo Benign Paroxysmal Position 520.6 Teeth Eruption Disturbances Office Visit 10/31/2002 4:00p 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 [id number]/24/2018 - Aimee Nick, PAH81.13 Benign paroxysmal vertigo, [...] to cefdinir due to lack of initial response.
[2018-11-06 11:45] VITALS: BP 123/62
[2018-11-06] MEDS ORDERED: Lidocaine 1%* 5 ML VIAL INJ ONE (11:57)
--- NOTE | 2018-11-06 12:29 | UC ---
Laceration HPI - HPI Summary HPI Summary: 43 year old male with no PMH presents after kick back from drill hit eye with battery part of drill, + laceration, + bleeding. NO headache, no visual changes, no damage to eye. Patient here for suture as he is working in a [place] area and doesn't want to have infection. no difficulty with wound healing , no ID history, no bleeding history - History Of Current Complaint Chief Complaint: UCLaceration Stated Complaint: RT EYE CONCERN Time Seen by Provider: 11/06/18 11:49 Hx Obtained From: Patient Onset/Duration: Sudden Onset, Lasting Minutes Severity: Moderate Pain Intensity: 3 Pain Scale Used: 0-10 Numeric Aggravating Factors: Nothing Related History: Occupational Injury - Allergies/Home Medications Allergies/Adverse Reactions: Allergies Allergy/AdvReac Type Severity Reaction Status Date / Time No Known Allergies Allergy Verified 11/06/18 11:39 Home Medications: Home Medications Ibs Medication 1 tab PO BID 11/06/18 [History] Tumeric 1 tab PO DAILY 11/06/18 [History] PMH/Surg Hx/FS Hx/Imm Hx Previously Healthy: Yes - Surgical History Surgical History: Yes Surgery Procedure, Year, and Place: left hand - Family History Known Family History: Positive: Diabetes - FATHER Negative: Respiratory Disease, Blood Disorder - Social History Alcohol Use: None Substance Use Type: None Smoking Status (MU): Never Smoked Tobacco - Immunization History Most Recent Tetanus Shot: within past 5 years Review of Systems All Other Systems Reviewed And Are Negative: Yes Skin: Positive: Bruising, Other - laceration above right eye Is Patient Immunocompromised?: No Physical Exam Triage Information Reviewed: Yes Appearance: Well-Appearing, No Pain Distress, Well-Nourished Vital Signs: Initial Vital Signs Temp 97.1 F 11/06/18 11:41 Pulse 51 11/06/18 11:41 Resp 15 11/06/18 11:41 BP 123/62 11/06/18 11:41 Pulse Ox 98 11/06/18 11:41 Vital Signs Reviewed: Yes Eyes: Positive: Conjunctiva Clear, Other: - EMOI, no TTP around orbit, no deformity noted ENT: Positive: Normal ENT inspection, Hearing grossly normal, Other - no TTP periobital right eye. no bruising, mild edema noted. full motion of brow in compared to L Neck: Positive: Supple. Negative: Nuchal Rigidity Laceration Repair - Laceration Repair 1 Description: Linear Laceration Size After Repair: Length (cm) - 1.5, Width (mm) - 2, Depth (mm) - 3 Contamination/FB Removal: none Modified For Repair: No Type Injection: Local Anesthesia Used: 1.0% Lido Cleansing Completed Via Routine Prep: Yes Irrigation With Pressure Irrigation Device: Yes Closure Material: Sutures Closure Method: Single Layer - 5 6.0 prolene Suture Of: Skin Suture Type: Prolene Laceration Course/Dx - Course/Dx Course Of Treatment: laceration repair, follow up for removal within 5 days no complications Patient reviewed tetanus shot, believes within past 10 years, recommended to receive TDAP today, patient refused. Educated on repercussions - Diagnosis Provider Diagnosis: Laceration Discharge - Sign-Out/Discharge Documenting (check all that apply): Patient Departure All imaging exams completed and their final reports reviewed: No Studies - Discharge Plan Condition: Good Disposition: HOME Patient Education Materials: Care For Your Stitches (ED) Referrals: Abiel Lehman MD [Primary Care Provider] - Additional Instructions: - 5 sutures to be removed within 5 days, may return to urgent care for removal or follow up with primary physician. sutures left in longer risk scarring or infection - keep area covered for next 48 hours, OK to get wet, no submerging under water (no pools, swimming, hot tubs) until sutures removed. - REturn with redness, drainage, increased pain - Billing Disposition and Condition Condition: GOOD Disposition: Home - Attestation Statements Provider Attestation: Per institutional requirements, I have reviewed the chart, however, I was not consulted specifically or made aware of this patient by the midlevel provider. I did not personally evaluate, interact with , or disposition this patient.
== END 2018-11-06 12:32 | disposition home or self-care (01) ==
LOC: UCCORT 10:49
DX: S01.111A Laceration without foreign body of right eyelid and periocular area, initial encounter (principal); W29.8XXA Contact with other powered hand tools and household machinery, initial encounter; Y92.69 Other specified industrial and construction area as the place of occurrence of the external cause
CPT/HCPCS: 12011; 99211; G0463